=== PATIENT | male | born 1935 | race Two or more races ===

== ENCOUNTER 2018-01-26 16:15 | Inpatient (IN) | payer MEDICARE ==
[~2018-01-26] VITALS: Ht 177.8 cm; Wt 73.2 kg
[2018-01-26] MEDS ORDERED: IV NORMAL SALINE 500 ML BAG IV ONE (16:45)
[2018-01-26 17:00] LABS: BASOPHILS % (AUTO) 0.5 % (0.0-2.0); EOSINOPHILS # (AUTO) 0.1 K/uL (0.0-0.7); EOSINOPHILS % (AUTO) 3.2 % (0.0-7.0); HEMATOCRIT 32.1 % (36.7-47.1); HEMOGLOBIN 10.7 g/dL (12.5-16.3); LYMPHOCYTES # (AUTO) 0.5 K/uL (20.0-40.0); LYMPHOCYTES % (AUTO) 10.9 % (20.5-51.5); MEAN CORPUSCULAR HEMOGLOBIN 29.5 uug (23.8-33.4); MEAN CORPUSCULAR HGB CONC 33 g/dL (32.5-36.3); MEAN CORPUSCULAR VOLUME 88.2 fL (73.0-96.2); MONOCYTES # (AUTO) 0.5 K/uL (2.0-10.0); MONOCYTES % (AUTO) 11.3 % (0.0-11.0); NEUTROPHILS # (AUTO) 3.1 K/uL (1.8-8.9); NEUTROPHILS % (AUTO) 74.1 % (38.5-71.5); PLATELET COUNT (AUTO) 110 K/uL (152-348); RED BLOOD CELL COUNT(AUTO) 3.64 MIL/uL (4.06-5.63); WHITE BLOOD COUNT (AUTO) 4.2 K/uL (3.6-10.2)
[2018-01-26] MEDS ORDERED: AMLO10TA2 PO (17:07)
[2018-01-26] MEDS ORDERED: CARV6.252 PO (17:07)
[2018-01-26] MEDS ORDERED: ISOS30TA6 PO (17:07)
[2018-01-26] MEDS ORDERED: TRAZ-144 PO (17:07)
[2018-01-26] MEDS ORDERED: HYDR-4076 PO (17:07)
[2018-01-26] MEDS ORDERED: ASPI81TA31 PO (17:07)
[2018-01-26] MEDS ORDERED: CARV25TA2 PO (17:08)
[2018-01-26] MEDS ORDERED: CEFTRIAXONE 1 G in IV DEXTROSE 5% 50 ML IV ONE (17:15)
[2018-01-26] MEDS ORDERED: AZITHROMYCIN IV 500 MG in IV DEXTROSE 5% 250 ML IV ONE (17:15)
[2018-01-26] MEDS ORDERED: AZITHROMYCIN 500 MG VIAL IV ONE (17:21)
[2018-01-26] MEDS ORDERED: CEFTRIAXONE 1 G VIAL ONE (17:22)
--- NOTE | 2018-01-26 17:25 | NUR ---
Pt resting in [facility] with NAD noted at this time. Per pt to be admitted to [facility], [place] paged.
[2018-01-26 17:26] LABS: ALANINE AMINOTRANSFERASE 81 U/L (16-63); ALKALINE PHOSPHATASE 174 U/L (50-136); ASPARTATE AMINOTRANSFERASE 65 U/L (15-37); BILIRUBIN,DIRECT 0.3 mg/dL (0.0-0.2); BILIRUBIN,TOTAL 0.8 mg/dL (0.2-1.0); CARBON DIOXIDE 27 mmol/L (21-32); CHLORIDE 102 mmol/L (98-107); CREATININE 2.7 mg/dL (0.6-1.3); GLUCOSE 109 mg/dL (74-106); POTASSIUM 4.6 mmol/L (3.5-5.1); UREA NITROGEN, BLOOD 43 mg/dL (7-18)
[2018-01-26 17:27] LABS: TOTAL PROTEIN, SERUM 7.2 g/dL (6.4-8.2)
[2018-01-26] MEDS ORDERED: ACETAMINOPHEN 325 MG TABLET PO PRN (18:00)
[2018-01-26] MEDS ORDERED: Z GUARD REMEDY PASTE 57 GM TUBE TOP PRN (18:00)
[2018-01-26] MEDS ORDERED: MAGNESIUM HYDROXIDE 30 ML LIQUID UDC PO PRN (18:00)
[2018-01-26] MEDS ORDERED: ONDANSETRON 4 MG/2 ML VIAL IV PRN (18:00)
[2018-01-26] MEDS ORDERED: HYDROCODONE/APAP 5-325MG TABLET PO PRN (18:00)
--- NOTE | 2018-01-26 18:25 | NUR ---
Pending admission paperwork and transfer to tele room 210. Per patient to be placed on isolation, Minesh (charge nurse ) on tele floor notified.
--- NOTE | 2018-01-26 18:36 | NUR ---
Pt trans to tele floor, NAD noted.
--- NOTE | 2018-01-26 18:50 | NUR ---
Received patient from ER to room 210 via gurney, in no apparent distress. patient is alert, awake and oriented x4, denies any pain at this time. Vital signs taken and recorded. IV site to right hand patent, IV fluids running continuously. Skin is warm and dry to touch. Skin assessment was done, noted with dry scab to bilateral lower extremities. Photos taken. C/O SOB with any exertion. No distress noted at this time. Will endorse to oncoming shift.
[2018-01-26 18:56] VITALS: BP 138/84
--- NOTE | 2018-01-26 19:00 | NUR ---
ADMITTED AN 82 Y/O MALE WITH DIAGNOSIS OF PNEUMONIA. PT AAOX4. DENIES ANY PAIN OR SOB AT THIS TIME. SR ON TELE AT 65/MIN. IV SITE ON RIGHT HAND INTACT AND PATENT. ROUTINE ADMISSION CARE DONE. PLAN OF CARE INITIATED. SAFETY MEASURE INITIATED AND CALL HULL WITHIN REACHED. Addendum: 01/27/18 at 0228 by EMMY JOAQUIN RN IV SITE ON RFA.
[2018-01-26] MEDS: TRAZODONE 50 MG TABLET PO SCH (19:47)
[2018-01-26] MEDS: FUROSEMIDE 40 MG/4 ML VIAL IV SCH (19:48)
[2018-01-26 20:32] VITALS: BP 145/89
[2018-01-26] MEDS: TEMAZEPAM 7.5 MG CAPSULE PO PRN (21:33)
[2018-01-27] VITALS: BP 140/82
--- NOTE | 2018-01-27 00:30 | NUR ---
PT NOTED WITH FREQUENT COUGH. ABLE TO EXPECTORATE WHITISH PHLEGM. INFORM DOCTOR SUZIE WITH ORDER TO START PT ON MUCINEX 600MG Q6HR RTC. ORDER READ BACK, VERIFIED AND CARRIED OUT.
[2018-01-27] MEDS: GUAIFENESIN LA 600 MG TABLET.SA PO PRN (00:34)
[2018-01-27 04:00] VITALS: BP 150/85
--- NOTE | 2018-01-27 06:00 | NUR ---
AAOX4. DENIES ANY FURTHER PAIN. DENIES ANY SOB. O2 SAT AT 92% ON RA. IN NO ACUTE DISTRESS. STILL WITH OCCASIONAL COUGH AND ABLE TO EXPECTORATE WHITISH PHLEGM. IV SITE ON RFA INTACT AND PATENT. SR WITH EPISODE OF PVC's ON TELE AT 66/MIN. SAFETY MEASURE MAINTAINED AND CALL HULL WITHIN REACH.
[2018-01-27] MEDS: PANTOPRAZOLE SODIUM 40 MG TABLET.DR PO SCH (06:06)
[2018-01-27 07:14] LABS: BASOPHILS % (AUTO) 0.5 % (0.0-2.0); EOSINOPHILS # (AUTO) 0.1 K/uL (0.0-0.7); EOSINOPHILS % (AUTO) 4.1 % (0.0-7.0); HEMATOCRIT 30.4 % (36.7-47.1); HEMOGLOBIN 10.5 g/dL (12.5-16.3); LYMPHOCYTES # (AUTO) 0.5 K/uL (20.0-40.0); LYMPHOCYTES % (AUTO) 15.9 % (20.5-51.5); MEAN CORPUSCULAR HEMOGLOBIN 31.5 uug (23.8-33.4); MEAN CORPUSCULAR HGB CONC 34 g/dL (32.5-36.3); MEAN CORPUSCULAR VOLUME 91.6 fL (73.0-96.2); MONOCYTES # (AUTO) 0.4 K/uL (2.0-10.0); MONOCYTES % (AUTO) 12.2 % (0.0-11.0); NEUTROPHILS # (AUTO) 2.2 K/uL (1.8-8.9); NEUTROPHILS % (AUTO) 67.3 % (38.5-71.5); PLATELET COUNT (AUTO) 110 K/uL (152-348); RED BLOOD CELL COUNT(AUTO) 3.32 MIL/uL (4.06-5.63); WHITE BLOOD COUNT (AUTO) 3.2 K/uL (3.6-10.2)
[2018-01-27 07:16] LABS: CARBON DIOXIDE 26 mmol/L (21-32); CHLORIDE 105 mmol/L (98-107); CHOLESTEROL 131 mg/dL (<200); CREATININE 2.8 mg/dL (0.6-1.3); GLUCOSE 108 mg/dL (74-106); HDL CHOLESTEROL 44 mg/dL (40-60); MAGNESIUM 2.2 mg/dL (1.8-2.4); POTASSIUM 3.9 mmol/L (3.5-5.1); TRIGLYCERIDES 83 MG/DL (30-150); UREA NITROGEN, BLOOD 42 mg/dL (7-18)
--- NOTE | 2018-01-27 07:38 | NUR ---
RECEIVED SHIFT REPORT FROM MENDING CARRIER NURSE. PATIENT RESTING COMFORTABLY IN BED. COUGHING OUT SECRETIONS. RESPIRATORY CULTURE NEEDED. WILL COLLECT AND SEND TO LAB. A/OX4, STABLE CONDITION, NO S/S OF DISTRESS. WILL MONITOR PATIENT'S BLOOD PRESSURE. AMBULATORY. CALL LIGHT WITHIN REACH. BED IN LOCKED/ LOW POSITION. URINAL AT BEDSIDE. DROPLET PRECAUTION IMPLEMENTED FOR PNA.
[2018-01-27 08:21] VITALS: BP 167/97
[2018-01-27] MEDS: ISOSORBIDE MONONITRATE 30 MG TAB.SR.24H PO SCH (08:23)
[2018-01-27] MEDS: AMLODIPINE 10 MG TABLET PO SCH (08:23)
[2018-01-27] MEDS: FUROSEMIDE 40 MG/4 ML VIAL IV SCH (08:23)
[2018-01-27] MEDS: hydrALAZINE HCL 25 MG TABLET PO SCH ×3 (08:23→17:33)
[2018-01-27] MEDS: ASPIRIN 81 MG TAB.CHEW PO SCH (08:23)
[2018-01-27] MEDS: CARVEDILOL 6.25 MG TABLET PO SCH ×2 (08:23→18:31)
[2018-01-27 11:18] VITALS: BP 133/79
--- NOTE | 2018-01-27 13:54 | NUR ---
PATIENT HAS BEEN STABLE. BLOOD PRESSURE HAS BEEN ELEVATED BUT BLOOD PRESSURE BEING MANAGED BY MEDICATION. NO S/S OF DISTRESS. MD - STUMP BLOWER HAS SEEN PT. SPUTUM CULTURE SENT. UA AND STOOL OB PENDING.
[2018-01-27 15:05] VITALS: BP 144/55
[2018-01-27 16:25] LABS: *BILIRUBIN,URIN NEGATIVE (NEGATIVE); *BLOOD, URINE NEGATIVE (NEGATIVE); *CLARITY,URINE CLEAR (CLEAR); *COLOR,URINE YELLOW (YELLOW); *KETONES,URINE NEGATIVE (NEGATIVE); *PROTEIN,URINE 1+ (NEGATIVE); *UROBILINOGEN,URINE 0.2 E.U./dl (NORMAL); LEUKOCYTE ESTERASE ,URINE NEGATIVE (NEGATIVE); NITRITE, URINE NEGATIVE (NEGATIVE); PH,URINE 5.5 (5.0-8.0); UGLUCOSE NEGATIVE (NEGATIVE)
[2018-01-27 16:44] LABS: *CREATININE,URINE 54.8 mg/dL (30-125); *URINE TOTAL PROTEIN RANDOM 38.5 mg/dL (<150/24HR)
[2018-01-27] MEDS ORDERED: GUAIFENESIN/CODEINE 5 ML LIQUID UDC PO PRN (17:30)
[2018-01-27] MEDS: AZITHROMYCIN IV 250 MG in IV DEXTROSE 5% 250 ML IV SCH (17:33)
[2018-01-27] MEDS: TRAZODONE 50 MG TABLET PO SCH (18:31)
[2018-01-27] MEDS: CEFTRIAXONE 1 G in IV DEXTROSE 5% 50 ML IV SCH (19:02)
[2018-01-27 19:28] LABS: WBC,URINE NONE SEEN /HPF (0-3)
[2018-01-27 20:00] VITALS: BP 155/95
--- NOTE | 2018-01-27 20:00 | NUR ---
NSG: pt went for ct chest.
--- NOTE | 2018-01-27 20:20 | NUR ---
nsg: pt came back fr ct chest, c/o sob at rest and on exertion. put on 3L O2 via nc, saturating at 99%. family at the bedside. cont to monitor.
--- NOTE | 2018-01-27 21:03 | NUR ---
nsg: spoke with Dr. Schmid regarding patient's c/o sob. received order for stat abg and notify md of abg and ct chest results. pt currently on 3L O2 via nc, saturating at 93%.
[2018-01-27 21:33] LABS: ABG BASE EXCESS 0.5 mmol/L; ABG HCO3 24.5 mmol/L; ABG PCO2 36.7 mmHg (35.0-45.0); ABG PH 7.442 (7.350-7.450); ABG PO2 76.6 mmHg (75.0-100.0); ABG SITE RIGHT RADIAL; ABG TOTAL HEMOGLOBIN 10.5 G/dL (13.5-18.0); COHb 0.9 % (0.5-1.5); MetHb 0.3 % (0.0-1.5); O2Hb 93.4 % (94.0-97.0); VENT MODE Nasal Cannula
--- NOTE | 2018-01-27 21:44 | NUR ---
nsg: notified Dr. clark of abg results. no further orders received. also, md aware of ct chest result.
[2018-01-27] MEDS ORDERED: LORAZEPAM 0.5 MG TABLET PO PRN (22:15)
[2018-01-27] MEDS ORDERED: IPRATROPIUM BROMIDE 0.5 MG/2.5 ML NEBU NEB PRN (22:15)
[2018-01-27] MEDS ORDERED: ALBUTEROL SULFATE 2.5 MG/ 0.5 ML NEBU NEB PRN (22:15)
[2018-01-27] MEDS: CARVEDILOL 25 MG TABLET PO SCH (22:21)
[2018-01-27] MEDS: ATORVASTATIN 40 MG TABLET PO SCH (22:21)
[2018-01-28] VITALS (7 sets, daily range): BP systolic 119–143; BP diastolic 47–85
--- NOTE | 2018-01-28 06:00 | NUR ---
nsg: no acute distress noted. on 3L O2, saturating at 97%. tele, SB with pvc's with HR in 50's. cont to monitor.
[2018-01-28 06:11] LABS: IRON, SERUM 13 ug/dL (50-175)
[2018-01-28 06:12] LABS: BASOPHILS % (AUTO) 0.5 % (0.0-2.0); EOSINOPHILS # (AUTO) 0.1 K/uL (0.0-0.7); EOSINOPHILS % (AUTO) 2.9 % (0.0-7.0); HEMATOCRIT 27.4 % (36.7-47.1); HEMOGLOBIN 9.4 g/dL (12.5-16.3); LYMPHOCYTES # (AUTO) 0.4 K/uL (20.0-40.0); LYMPHOCYTES % (AUTO) 15.5 % (20.5-51.5); MEAN CORPUSCULAR HEMOGLOBIN 31.4 uug (23.8-33.4); MEAN CORPUSCULAR HGB CONC 34 g/dL (32.5-36.3); MONOCYTES # (AUTO) 0.5 K/uL (2.0-10.0); MONOCYTES % (AUTO) 15.7 % (0.0-11.0); NEUTROPHILS # (AUTO) 1.9 K/uL (1.8-8.9); NEUTROPHILS % (AUTO) 65.4 % (38.5-71.5); PLATELET COUNT (AUTO) 123 K/uL (152-348); RED BLOOD CELL COUNT(AUTO) 2.98 MIL/uL (4.06-5.63); WHITE BLOOD COUNT (AUTO) 2.9 K/uL (3.6-10.2)
[2018-01-28] MEDS: PANTOPRAZOLE SODIUM 40 MG TABLET.DR PO SCH (06:22)
[2018-01-28 06:47] LABS: ALANINE AMINOTRANSFERASE 47 U/L (16-63); ALKALINE PHOSPHATASE 98 U/L (50-136); ASPARTATE AMINOTRANSFERASE 23 U/L (15-37); BILIRUBIN,TOTAL 0.5 mg/dL (0.2-1.0); CARBON DIOXIDE 26 mmol/L (21-32); CHLORIDE 104 mmol/L (98-107); CREATININE 2.9 mg/dL (0.6-1.3); FERRITIN 86 ng/mL (26-388); GLUCOSE 96 mg/dL (74-106); MAGNESIUM 2.1 mg/dL (1.8-2.4); PHOSPHOROUS 4.9 mg/dL (2.5-4.9); POTASSIUM 3.9 mmol/L (3.5-5.1); TOTAL PROTEIN, SERUM 5.6 g/dL (6.4-8.2); UREA NITROGEN, BLOOD 42 mg/dL (7-18)
--- NOTE | 2018-01-28 07:18 | NUR ---
RECEIVED SHIFT REPORT FROM VOCATIONAL REHABILITATION SPECIALIST NURSE. PATIENT RESTING COMFORTABLY IN BED AT THIS TIME.STABLE CONDITION, NO S/S OF DISTRESS. AIRBORNE PRECAUTION IMPLEMENTED. PAIN MANAGEMENT WILL BE PROVIDED. BLOOD PRESSURE WILL BE MANAGED. WILL CONTINUE TO MONITOR. CALL LIGHT WITHIN REACH.
[2018-01-28 07:26] LABS: CREATINE KINASE, TOTAL 119 U/L (39-308)
[2018-01-28] MEDS: ASPIRIN 81 MG TAB.CHEW PO SCH (08:19)
[2018-01-28] MEDS: ISOSORBIDE MONONITRATE 30 MG TAB.SR.24H PO SCH (08:19)
[2018-01-28] MEDS: hydrALAZINE HCL 25 MG TABLET PO SCH ×3 (08:20→16:52)
[2018-01-28] MEDS: CARVEDILOL 25 MG TABLET PO SCH ×2 (08:20→16:52)
[2018-01-28] MEDS: AMLODIPINE 10 MG TABLET PO SCH (08:20)
[2018-01-28 08:21] LABS: BAND % (MANUAL) 5 % (0-10); EOSINOPHILS % (MANUAL) 2 % (0-8); LYMPHOCYTES % (MANUAL) 7 % (20-40); MONOCYTES % (MANUAL) 7 % (2-10); NEUTROPHILS % (MANUAL) 79 % (42-75)
[2018-01-28] MEDS ORDERED: LACTOBACILLUS RHAMNOSUS GG 1 EACH CAPSULE PO SCH (09:00)
[2018-01-28] MEDS ORDERED: FUROSEMIDE 40 MG/4 ML VIAL IV ONE (11:00)
[2018-01-28] MEDS: methylPREDNISolone SOD SUCC 125 MG/2 ML VIAL IV SCH ×2 (12:44→21:04)
[2018-01-28] MEDS: AZITHROMYCIN IV 250 MG in IV DEXTROSE 5% 250 ML IV SCH (16:57)
[2018-01-28] MEDS: CEFTRIAXONE 1 G in IV DEXTROSE 5% 50 ML IV SCH (18:59)
[2018-01-28] MEDS: TRAZODONE 50 MG TABLET PO SCH (19:01)
[2018-01-28] MEDS: IPRATROPIUM BROMIDE 0.5 MG/2.5 ML NEBU NEB SCH (19:15)
[2018-01-28] MEDS: ALBUTEROL SULFATE 1.25 MG/3 ML NEBU NEB SCH (19:15)
[2018-01-28] MEDS ORDERED: LEVALBUTEROL HCL NEB 0.63 MG/3 ML NEBU NEB SCH (19:30)
--- NOTE | 2018-01-28 20:00 | NUR ---
AWAKE,ALERTX3.NO SOB. NO COMPLAINTS,RESTING COMFORTABLY
[2018-01-28] MEDS ORDERED: CEFEPIME HCL 1 G in IV DEXTROSE 5% 50 ML IV SCH (21:00)
[2018-01-28] MEDS: CEFEPIME HCL 1 G in IV DEXTROSE 5% 50 ML IV SCH (21:04)
[2018-01-28] MEDS: ATORVASTATIN 40 MG TABLET PO SCH (21:04)
--- NOTE | 2018-01-28 22:00 | NUR ---
SLEEPING PILL AND COUGH PILL GIVEN
[2018-01-28] MEDS: TEMAZEPAM 7.5 MG CAPSULE PO PRN (22:15)
[2018-01-28] MEDS: GUAIFENESIN LA 600 MG TABLET.SA PO PRN (22:15)
[2018-01-29] VITALS: BP 141/76
[2018-01-29] MEDS: ALBUTEROL SULFATE 1.25 MG/3 ML NEBU NEB SCH ×5 (00:36→19:24)
[2018-01-29] MEDS: IPRATROPIUM BROMIDE 0.5 MG/2.5 ML NEBU NEB SCH ×5 (00:36→19:24)
[2018-01-29 04:00] VITALS: BP 142/92
[2018-01-29 06:17] LABS: CARBON DIOXIDE 25 mmol/L (21-32); CHLORIDE 104 mmol/L (98-107); CREATININE 2.6 mg/dL (0.6-1.3); GLUCOSE 132 mg/dL (74-106); UREA NITROGEN, BLOOD 44 mg/dL (7-18)
[2018-01-29] MEDS: PANTOPRAZOLE SODIUM 40 MG TABLET.DR PO SCH (06:31)
[2018-01-29] MEDS: methylPREDNISolone SOD SUCC 125 MG/2 ML VIAL IV SCH ×3 (06:31→21:02)
[2018-01-29 06:55] LABS: BASOPHILS % (AUTO) 0.1 % (0.0-2.0); HEMATOCRIT 29.6 % (36.7-47.1); HEMOGLOBIN 9.9 g/dL (12.5-16.3); LYMPHOCYTES # (AUTO) 0.3 K/uL (20.0-40.0); MEAN CORPUSCULAR HEMOGLOBIN 29.2 uug (23.8-33.4); MEAN CORPUSCULAR HGB CONC 33 g/dL (32.5-36.3); MEAN CORPUSCULAR VOLUME 87.9 fL (73.0-96.2); MONOCYTES # (AUTO) 0.1 K/uL (2.0-10.0); MONOCYTES % (AUTO) 4.5 % (0.0-11.0); NEUTROPHILS # (AUTO) 1.8 K/uL (1.8-8.9); NEUTROPHILS % (AUTO) 81.4 % (38.5-71.5); PLATELET COUNT (AUTO) 131 K/uL (152-348); RED BLOOD CELL COUNT(AUTO) 3.37 MIL/uL (4.06-5.63); WHITE BLOOD COUNT (AUTO) 2.3 K/uL (3.6-10.2)
[2018-01-29] MEDS: ASPIRIN 81 MG TAB.CHEW PO SCH (08:54)
[2018-01-29] MEDS: ISOSORBIDE MONONITRATE 30 MG TAB.SR.24H PO SCH (08:56)
[2018-01-29] MEDS: CARVEDILOL 25 MG TABLET PO SCH ×2 (08:57→17:29)
[2018-01-29] MEDS: hydrALAZINE HCL 25 MG TABLET PO SCH ×3 (08:57→17:28)
[2018-01-29] MEDS: AMLODIPINE 10 MG TABLET PO SCH (08:58)
[2018-01-29 09:26] LABS: BAND % (MANUAL) 3 % (0-10); LYMPHOCYTES % (MANUAL) 11 % (20-40); MONOCYTES % (MANUAL) 4 % (2-10); NEUTROPHILS % (MANUAL) 82 % (42-75)
[2018-01-29 10:09] LABS: A/G RATIO 1.1 (0.7-1.7); ALBUMIN 2.7 g/dL (2.9-4.4); ALPHA-1-GLOBULIN 0.3 g/dL (0.0-0.4); ALPHA-2-GLOBULIN 0.7 g/dL (0.4-1.0); BETA GLOBULIN 0.8 g/dL (0.7-1.3); GAMMA GLOBULIN 0.7 g/dL (0.4-1.8); GLOBULIN, TOTAL 2.5 g/dL (2.2-3.9); M-SPIKE Not Observed g/dL (Not Observed)
[2018-01-29] MEDS ORDERED: MAGNESIUM HYDROXIDE 30 ML LIQUID UDC PO PRN (10:45)
[2018-01-29] MEDS ORDERED: FUROSEMIDE 20 MG/2 ML VIAL IV ONE (11:00)
[2018-01-29 11:24] VITALS: BP 136/84
[2018-01-29] MEDS: DOCUSATE SODIUM 250 MG CAPSULE PO SCH (11:32)
[2018-01-29] MEDS ORDERED: LIDOCAINE HCL 1% 20 ML VIAL IJ PRN (14:00)
[2018-01-29 15:34] VITALS: BP 127/71
[2018-01-29] MEDS: AZITHROMYCIN IV 250 MG in IV DEXTROSE 5% 250 ML IV SCH (17:29)
[2018-01-29] MEDS: TRAZODONE 50 MG TABLET PO SCH (17:46)
--- NOTE | 2018-01-29 17:53 | NUR ---
Called for pharmacy to correct side of thoracentesis fluid lab order. Patient have a thoracentesis on the left side. 350cc were removed. Xray were done, results were reviewed by MD High.
[2018-01-29 20:00] VITALS: BP 125/74
--- NOTE | 2018-01-29 20:00 | NUR ---
Received pt AAO x 4. Per pt, breathing feels a lot better after the procedure. No s/s of distress noted at this time. Pt asking for sleeping pill to aid with sleep at this time. Will administer medications as ordered. Safety measures provided. Will continue to monitor closely and follow up with lab regarding left lung thoracentesis lab order.
[2018-01-29] MEDS: CEFEPIME HCL 1 G in IV DEXTROSE 5% 50 ML IV SCH (20:55)
[2018-01-29] MEDS: ATORVASTATIN 40 MG TABLET PO SCH (20:55)
[2018-01-29] MEDS: TEMAZEPAM 7.5 MG CAPSULE PO PRN (21:00)
[2018-01-30] MEDS: IPRATROPIUM BROMIDE 0.5 MG/2.5 ML NEBU NEB SCH ×3 (01:10→13:17)
[2018-01-30] MEDS: ALBUTEROL SULFATE 1.25 MG/3 ML NEBU NEB SCH ×3 (01:10→13:17)
[2018-01-30 04:00] VITALS: BP 125/67
[2018-01-30] MEDS: PANTOPRAZOLE SODIUM 40 MG TABLET.DR PO SCH (06:28)
[2018-01-30] MEDS: methylPREDNISolone SOD SUCC 125 MG/2 ML VIAL IV SCH ×2 (06:28→13:15)
[2018-01-30 06:54] LABS: CARBON DIOXIDE 26 mmol/L (21-32); CHLORIDE 105 mmol/L (98-107); CREATININE 2.5 mg/dL (0.6-1.3); GLUCOSE 117 mg/dL (74-106); UREA NITROGEN, BLOOD 51 mg/dL (7-18)
--- NOTE | 2018-01-30 07:00 | NUR ---
No s/s of respiratory distress noted throughout the night. Will endorse accordingly.
[2018-01-30 07:09] LABS: BASOPHILS % (AUTO) 0.1 % (0.0-2.0); HEMOGLOBIN 9.9 g/dL (12.5-16.3); LYMPHOCYTES # (AUTO) 0.4 K/uL (20.0-40.0); MONOCYTES # (AUTO) 0.4 K/uL (2.0-10.0)
[2018-01-30 07:56] LABS: HEMATOCRIT 30.2 % (36.7-47.1); LYMPHOCYTES % (AUTO) 4.5 % (20.5-51.5); MEAN CORPUSCULAR HEMOGLOBIN 28.9 uug (23.8-33.4); MEAN CORPUSCULAR HGB CONC 33 g/dL (32.5-36.3); MEAN CORPUSCULAR VOLUME 87.9 fL (73.0-96.2); MONOCYTES % (AUTO) 4.1 % (0.0-11.0); NEUTROPHILS # (AUTO) 8.4 K/uL (1.8-8.9); NEUTROPHILS % (AUTO) 91.3 % (38.5-71.5); RED BLOOD CELL COUNT(AUTO) 3.43 MIL/uL (4.06-5.63)
--- NOTE | 2018-01-30 08:00 | NUR ---
AWAKE ALERT COOPERATE WELL NO SOB OR PAIN RESTING WITH CALL LIGHT IN REACH AND INSTRUCTION TO CALL WHEN NEEDED
[2018-01-30] MEDS: CARVEDILOL 25 MG TABLET PO SCH (08:17)
[2018-01-30] MEDS: AMLODIPINE 10 MG TABLET PO SCH (08:17)
[2018-01-30] MEDS: DOCUSATE SODIUM 250 MG CAPSULE PO SCH (08:18)
[2018-01-30] MEDS: ISOSORBIDE MONONITRATE 30 MG TAB.SR.24H PO SCH (08:18)
[2018-01-30] MEDS: hydrALAZINE HCL 25 MG TABLET PO SCH ×2 (08:18→12:13)
[2018-01-30 08:20] LABS: WHITE BLOOD COUNT (AUTO) 9.2 K/uL (3.6-10.2)
[2018-01-30 08:22] LABS: PLATELET COUNT (AUTO) 175 K/uL (152-348)
[2018-01-30] MEDS: ASPIRIN 81 MG TAB.CHEW PO SCH (09:30)
[2018-01-30 11:19] VITALS: BP 128/73
[2018-01-30] MEDS ORDERED: PRED50TA PO (11:52)
[2018-01-30] MEDS ORDERED: LEVO500T2 PO (11:52)
[2018-01-30] MEDS ORDERED: FURO-152 PO (11:52)
[2018-01-30 12:00] LABS: BAND % (MANUAL) 4 % (0-10); LYMPHOCYTES % (MANUAL) 3 % (20-40); METAMYELOCYTES % 1 % (0-1); MONOCYTES % (MANUAL) 2 % (2-10); NEUTROPHILS % (MANUAL) 90 % (42-75)
--- NOTE | 2018-01-30 12:00 | NUR ---
DR STEINER SEE PATIENT AND ORDER OK TO D/C HOME TODAY WITH PRECRIPTION
[2018-01-30 12:13] VITALS: BP 128/73
--- NOTE | 2018-01-30 14:00 | NUR ---
D/C INSTRUCTION REGARDING F/U WITH OWN PMD CALL FOR APPIONTMENT CONTINUE HOME MEDICATION ORDER AND EDUCATION PK GIVEN EXPLAINED TO PATIENT AND DAUGHTER ,VERBALIZES UNDERSTAND AMND SIGNS D/C SHEET HL WAS DISCONTINUE PRIOR D/C HOME TODAY
--- NOTE | 2018-01-30 14:30 | NUR ---
D/C HOME TODAY WITH HIS BELONGING CONDITION STABLE ACCOMPANIES WITH DAUGHTER
== END 2018-01-30 14:30 | disposition home or self-care (01) | DRG 291 ==
LOC: ER 16:18 → EDBD 18:40 → TELE 18:40 → MED 01-29 10:35
PROVIDERS: ADMIT Internal Medicine; ATTEND Internal Medicine
PROC: 0W9B3ZX Drainage of Left Pleural Cavity, Percutaneous Approach, Diagnostic (ICD-10-PCS; principal; 2018-01-29)
DX: I13.0 Hypertensive heart and chronic kidney disease with heart failure and stage 1 through stage 4 chronic kidney disease, or unspecified chronic kidney disease (principal); I50.23 Acute on chronic systolic (congestive) heart failure; N17.0 Acute kidney failure with tubular necrosis; J96.01 Acute respiratory failure with hypoxia; J18.8 Other pneumonia, unspecified organism; D61.818 Other pancytopenia; J44.0 Chronic obstructive pulmonary disease with (acute) lower respiratory infection; J91.8 Pleural effusion in other conditions classified elsewhere; I27.20 Pulmonary hypertension, unspecified; N18.4 Chronic kidney disease, stage 4 (severe); R04.2 Hemoptysis; J44.1 Chronic obstructive pulmonary disease with (acute) exacerbation; R64 Cachexia; I25.5 Ischemic cardiomyopathy; I25.10 Atherosclerotic heart disease of native coronary artery without angina pectoris; D63.8 Anemia in other chronic diseases classified elsewhere; Z98.61 Coronary angioplasty status; Z87.891 Personal history of nicotine dependence
CPT/HCPCS: 32555; 36415; 36600; 70030-TC; 71045; 71270; 76770; 82785; 83520; 83550; 83605; 83615; 83735; 83970; 83986; 84100; 84155; 84156; 84165; 84300; 85025; 85730; 86256; 87040; 87070; 87205; 87278; 87400; 93307; 94640; 94664; A4663; J0456; J0692; J0696; J1940; J2930; J3490; J3590; J7030; J7050; J7060